=== PATIENT | male | born 1995 | race Caucasian/White ===

== ENCOUNTER 2016-11-21 16:45 | Day surgery (SDC) | payer BC ==
[~2016-11-21] VITALS: Ht 188 cm; Wt 81.5 kg
[~2016-11-21 16:45] MED LIST: LACTATED RINGER'S 1000 ML INJ 1,000 ML IV ONE; ONDA1TAB16 PO; ONDANSETRON HCL 4 MG/2 ML VIAL IV PUSH ONE; PROPOFOL 200 MG/20 ML AMP IV ONE; Z.0.NO CURRENT MEDS
[2016-11-21 16:53] VITALS: BP 186/86; PULSE 65; RESP 16; TEMP 98.5; O2SAT 100
--- NOTE | 2016-11-21 17:11 | PD ---
HPI Chief Complaint: Injury Time Seen by Provider: 17:02 Travel History International Travel<30 days: No Contact w/Intl Traveler<30days: No Traveled to known affect area: No History of Present Illness HPI 21-year-old male presents to the emergency department for evaluation of right wrist injury that occurred just prior to arrival. Patient states he was on his skateboard when he fell on his right wrist. He denies any febrile C. No neck pain or back pain. No chest pain or abdominal pain. No nausea, vomiting, diarrhea. Patient is obvious deformity to the right wrist. He does have open areas to his right volar wrist, which appear to be abrasions. Patient states his tetanus immunization is up-to-date. He has history of ADHD. He does take Adderall occasionally. No other complaints at this time. Patient states that he last ate approximately 2 hours ago, some eggs. He also drank Gatorade on his to the hospital. PFSH Past Medical History Hx Anticoagulant Therapy: No Cardiovascular Problems: No Chemotherapy: No Cerebrovascular Accident: No Diabetes: No Diminished Hearing: No Respiratory: No Immunizations Current: Yes ?: Not Past Surgical History Abdominal Surgery: Yes (HERNIA REPAIR ) Hysterectomy: No Social History Alcohol Use: No Tobacco Use: No Substance Use: Yes (MARIJUANA) Allergies-Medications (Allergen,Severity, Reaction): Coded Allergies: No Known Allergies (Verified , 02/03/12) Reported Meds & Prescriptions Reported Meds & Active Scripts Active Review of Systems Except as stated in HPI: all other systems reviewed are Neg Physical Exam Narrative GENERAL: Well-nourished, well-developed male patient, ambulatory. Afebrile SKIN: Focused skin assessment warm/dry. Patient has abrasions to the right volar wrist. HEAD: Normocephalic. Atraumatic. EYES: No scleral icterus. No injection or drainage. NECK: Supple, trachea midline. No JVD or lymphadenopathy. CARDIOVASCULAR: Regular rate and rhythm without murmurs, gallops, or rubs. Right radial pulse is easily palpable. RESPIRATORY: Breath sounds equal bilaterally. No accessory muscle use. Lungs sounds are clear to auscultation GASTROINTESTINAL: Abdomen soft, non-tender, nondistended. MUSCULOSKELETAL: No cyanosis, or edema. BACK: Nontender without obvious deformity. No CVA tenderness. Data Data Last Documented VS Vital Signs Date Time Temp Pulse Resp B/P (MAP) Pulse Ox O2 Delivery O2 Flow Rate FiO2 11/21/16 16:53 98.5 65 16 186/86 (119) 100 Room Air Orders Orders Forearm (2vws) (11/21/16 ) Iv Access Insert/Monitor (11/21/16 17:04) Morphine Inj (Morphine Inj) (11/21/16 17:15) Ondansetron Inj (Zofran Inj) (11/21/16 17:15) Propofol 200 Mg/20 Ml Inj (Diprivan 200 (11/21/16 17:30) Wrist, Limited (Ap&Lat) (11/21/16 ) Morphine Inj (Morphine Inj) (11/21/16 18:00) Complete Blood Count With Diff (11/21/16 18:14) Comprehensive Metabolic Panel (11/21/16 18:14) Prothrombin Time / Inr (Pt) (11/21/16 18:14) Act Partial Throm Time (Ptt) (11/21/16 18:14) Admit Order (Ed Use Only) (11/21/16 18:51) Labs Laboratory Tests Test 11/21/16 18:25 [facility] Medical Decision Making Medical Screen Exam Complete: Yes Emergency Medical Condition: Yes Medical Record Reviewed: Yes Interpretation(s) Last Impressions Wrist X-Ray 11/21/16 0000 Signed Impressions: Service Date/Time: Monday, November 21, 2016 18:03 - CONCLUSION: Significant improvement of alignment of distal radius and ulnar styloid fractures. Lobo Bennett MD Radius/Ulna X-Ray 11/21/16 0000 Signed Impressions: Service Date/Time: Monday, November 21, 2016 17:29 - CONCLUSION: 1. Acute comminuted dorsally dislocated fracture involving the distal radius with involvement of the articular surface. 2. Acute fracture/dislocation of the ulnar styloid process. Maximus Angela MD Differential Diagnosis Fracture versus open fracture versus dislocation versus contusion Narrative Course 21-year-old male presents to the emergency department for evaluation of right wrist injury. Patient has obvious deformity of the right wrist. IV access obtained. Patient is given morphine 4 g IV, Zofran 4 mg IV for pain. X-ray of the right wrist and right forearm are ordered and pending. X-ray of the right forearm shows acute comminuted dorsally dislocated fracture involving the distal radius with involvement of the articular surface, acute fracture/dislocation of the ulnar styloid process. My attending physician performed conscious sedation to reduce the fracture. Splint was applied. Repeat x-ray shows significant improvement of alignment distal radius and ulnar styloid fractures. Orthopedic surgeon pulmonary disease specialist, Dr. Mayo, is paged. I spoke to QUANG Mayorga for Dr. Mayo, who will take patient to surgery [facility]. Patient verbalizes agreement to this. Diagnosis Primary Impression: Right wrist fracture Qualified Codes: S62.101A - Fracture of unspecified carpal bone, right wrist, initial encounter for closed fracture Admitting Information Admitting Physician Requests: Observation Maria Esther Spivey Nov 21, 2016 17:11
[2016-11-21] MEDS ORDERED: ONDANSETRON HCL 4 MG/2 ML VIAL IV PUSH ONE (17:15)
[2016-11-21] MEDS ORDERED: MORPHINE SULFATE 4 MG/ML INJ IV PUSH ONE ×2 (17:15→18:00)
[2016-11-21] MEDS ORDERED: PROPOFOL 200 MG/20 ML AMP IV ONE (17:30)
--- NOTE | 2016-11-21 17:42 | RADRPT ---
EXAM DATE/TIME: 11/21/2016 17:29 [facility] COMPARISON: No previous studies available for comparison. INDICATIONS : Right wrist pain after falling off skateboard. MEDICAL HISTORY : None. SURGICAL HISTORY : None. ENCOUNTER: Initial ACUITY: 1 day PAIN SCORE: 10/10 LOCATION: Right distal forearm. FINDINGS: There is an acute comminuted dorsally dislocated fracture involving the distal radius with involvemen t of the articular surface. There is also acute fracture of the ulnar styloid process which is disloc ated dorsally. CONCLUSION: 1. Acute comminuted dorsally dislocated fracture involving the distal radius with involvement of the articular surface. 2. Acute fracture/dislocation of the ulnar styloid process. Maximus Angela MD on November 21, 2016 at 17:35 Board Certified Radiologist. This report was verified electronically.
--- NOTE | 2016-11-21 18:10 | RADRPT ---
EXAM DATE/TIME: 11/21/2016 18:03 [facility] COMPARISON: FOREARM RIGHT (2VWS), November 21, 2016, 17:29. INDICATIONS : Post reduction right wrist fracture. MEDICAL HISTORY : None. SURGICAL HISTORY : None. ENCOUNTER: Initial ACUITY: 1 day PAIN SCORE: 2/10 LOCATION: Right wrist FINDINGS: Two view examination of the right wrist demonstrates placement of a splint. Better alignment of dista l radius and ulnar fractures. CONCLUSION: Significant improvement of alignment of distal radius and ulnar styloid fractures. Lobo Bennett MD on November 21, 2016 at 18:07 Board Certified Radiologist. This report was verified electronically.
--- NOTE | 2016-11-21 18:55 | PD ---
Data Data Last Documented VS Vital Signs Date Time Temp Pulse Resp B/P (MAP) Pulse Ox O2 Delivery O2 Flow Rate FiO2 11/21/16 16:53 98.5 65 16 186/86 (119) 100 Room Air Orders Orders Forearm (2vws) (11/21/16 ) Iv Access Insert/Monitor (11/21/16 17:04) Morphine Inj (Morphine Inj) (11/21/16 17:15) Ondansetron Inj (Zofran Inj) (11/21/16 17:15) Propofol 200 Mg/20 Ml Inj (Diprivan 200 (11/21/16 17:30) Wrist, Limited (Ap&Lat) (11/21/16 ) Morphine Inj (Morphine Inj) (11/21/16 18:00) Complete Blood Count With Diff (11/21/16 18:14) Comprehensive Metabolic Panel (11/21/16 18:14) Prothrombin Time / Inr (Pt) (11/21/16 18:14) Act Partial Throm Time (Ptt) (11/21/16 18:14) Admit Order (Ed Use Only) (11/21/16 18:51) Labs Laboratory Tests Test 11/21/16 18:25 MDM Supervised Visit with CHELSI: Yes Narrative Course The history, exam, and medical decision-making in the associated midlevel provider note were completed with my assistance. I reviewed and agree with the findings presented. I attest that I had a [id number] encounter with the patient on the same day, and personally performed and documented my assessment and findings in the medical record. *My assessment and Findings: This is a 21-year-old male who presents to the emergency department having been skateboarding injuring his right wrist. He has a Colles' fracture of the right wrist with significant deformity on exam. He had some. He had some paresthesias in the fifth digit prior to reduction. Conscious sedation was performed and the wrist was reduced. Patient tolerated the procedure well and had sensation resolves and pain significantly improved. Patient will be taken to the operating room by Dr. Mayo this evening. Procedures Procedure Narrative After the risks and benefits were discussed the following procedure was performed: MODERATE SEDATION: The patient was placed on a monitor worker and pulse oximetry. An ambu bag and suction was immediately available at bedside. The patient was monitored by the nurse. Oxygen saturation, heart rate and blood pressure were monitored. Procedural sedation was acheived using 120 mg of propofol. The patient was observed until awake and alert. Procedural Sedation time in attendance was 30 minutes. Reduction of right wrist: Traction countertraction was performed on distal radius fracture obtaining significant alignment. Patient had a strong radial pulse and normal sensation following reduction. Cayla Jean MD Nov 21, 2016 18:55
[2016-11-21 18:57] LABS: AUTOMATED NEUTROPHIL # 9.6 TH/MM3 (1.8-7.7); BASOPHIL # 0.1 TH/MM3 (0-0.2); BASOPHIL % 0.6 % (0.0-2.0); EOSINOPHIL # 0.2 TH/MM3 (0-0.4); EOSINOPHIL % 1.2 % (0.0-4.0); HEMATOCRIT 42.8 % (39.0-51.0); LYMPHOCYTE # 5.5 TH/MM3 (1.0-4.8); MEAN CELL VOLUME 89.6 FL (80.0-100.0); MEAN CORPUSCULAR HEMOGLOBIN 29.8 PG (27.0-34.0); MEAN CORPUSCULAR HGB CONC 33.3 % (32.0-36.0); MONO % 5.1 % (0.0-8.0); NEUT % 59.1 % (16.0-70.0); PLATELET COUNT 357 TH/MM3 (150-450); RED BLOOD COUNT 4.77 MIL/MM3 (4.50-5.90); WHITE BLOOD COUNT 16.3 TH/MM3 (4.0-11.0)
[2016-11-21 19:09] LABS: HEMO FLAGS AUTO DIFF
[2016-11-21] MEDS ORDERED: HYDROmorphone HCL PF 1 MG/ML VIAL IV PUSH ONE (19:15)
[2016-11-21 19:18] LABS: APTT (PATIENT) 23.6 SEC (24.3-30.1); PROTHROMBIN TIME - PATIENT 11.1 SEC (9.8-11.6)
[2016-11-21 19:24] LABS: ALT (GPT) 47 U/L (9-52)
[2016-11-21 19:26] LABS: ALKALINE PHOSPHATASE 70 U/L (45-117); TOTAL BILIRUBIN ADULT 0.3 MG/DL (0.2-1.0)
[2016-11-21 19:28] LABS: ANION GAP 9 MEQ/L (5-15); AST (GOT) 30 U/L (15-39); BICARBONATE 26.8 MEQ/L (21.0-32.0); BLOOD UREA NITROGEN 16 MG/DL (7-18); CHLORIDE 103 MEQ/L (98-107); GLOMERULAR FILTRATION RATE 93 ML/MIN (>89); POTASSIUM 3.8 MEQ/L (3.5-5.1); SODIUM (NA) 139 MEQ/L (136-145)
[2016-11-21] MEDS ORDERED: GENTAMICIN SULFATE 80 MG/2 ML VIAL ONE (19:49)
[2016-11-21 19:55] VITALS: PULSE 64
[2016-11-21] MEDS ORDERED: INSULIN HUMAN REGULAR 1,000 UNITS/10 ML VIAL SQ PRN (20:15)
[2016-11-21] MEDS ORDERED: METOPROLOL TARTRATE 25 MG TAB PO PRN (20:15)
[2016-11-21] MEDS ORDERED: SODIUM CHLORID 0.9% 500 ML IV PRN (20:15)
[2016-11-21] MEDS ORDERED: CHLORHEXIDINE GLUCONATE 2 % 1 PACK (2 CLOTHS) TOPICAL PRN (20:15)
[2016-11-21] MEDS ORDERED: POVIDONE IODINE 5% (ANTISEPSIS KIT) 4 APPLICATIONS EACH NARE PRN (20:15)
[2016-11-21] MEDS ORDERED: LACTATED RINGER'S 1000 ML IV PRN (20:15)
[2016-11-21] MEDS ORDERED: MORPHINE SULFATE 4 MG/ML INJ IV SCH (20:45)
[2016-11-21 20:58] LABS: EOSINOPHILS 3 % (0-4); NEUTROPHIL # MANUAL DIFF 9.8 TH/MM3 (1.8-7.7); PLATELET ESTIMATE SMEAR HIGH (NORMAL); PLATELET MORPHOLOGY NORMAL (NORMAL); POLYS (SEG NEUTROPHILS) 60 % (16-70); SCAN/DIFF FINAL DIFF MANUAL; WBC DIFF SAMPLE 100
[2016-11-21] MEDS ORDERED: ceFAZolin 2 GM PREMIX 50 ML ONE (21:09)
[2016-11-21] MEDS ORDERED: HYDR-3366 PO (21:24)
--- NOTE | 2016-11-21 21:28 | PD.OP ---
cc: Nate Mayo MD Operative Report Date of Surgery: Nov 21, 2016 Preoperative Diagnosis: Displaced right distal radius fracture Postoperative Diagnosis: Procedure: Open reduction internal fixation right distal radius Anesthesia: Gen. Surgeon: Nate Mayo Crystal Slicer(s): Mukesh Mims PA-C The surgical procedure was assisted by my physician producer assistant. My P.A. presence was necessary throughout this case for the manipulation and positioning of the surgical extremity. My P.A. was assisting me throughout the duration of this procedure. The skill set of a physician producer assistant was medically necessary to complete this procedure. During the surgical case the surgical instrument repair specialist was working at the back table and the physician producer assistant was directly assisting me. Operation and Findings: Plan of activity : Splint 2 weeks, then removable wrist brace, nonweightbearing right wrist Patient was seen and evaluated preoperatively and found to have a displaced right distal radius fracture. Informed consent was obtained after detailed discussion of risk and benefits including bleeding, infection, injury to arteries, nerves, and blood vessels, weakness and numbness of hand, and tendon rupture. Informed consent was obtained. Patient received IV antibiotics prior to incision. Timeout procedure was performed. Operative extremity was prepped with alcohol followed by Hibiclens and draped usual sterile fashion. A standard volar approach to the distal radius was utilized. A 3 inch incision was made over the FCR tendon. Tendon sheath was opened. Pronator quadratus was elevated up. The fracture site was now visualized. Traction was applied. The articular surface was reduced. Fracture fragments were manipulated to achieve excellent reduction. K wires were used to hold provisional fixation. Fluoroscopy confirmed appropriate alignment of fracture. An ITS variable angle distal radius plate was selected. Plate was provisionally fixed to bone with K wires. 2.7 and 2.4 cortical screws were used to compress plate to bone. Fluoroscopy confirmed appropriate alignment of fracture with well-placed hardware. Multiple 2.4 locking screws were now placed distally. Screws were predrilled and measured for appropriate length. 2 additional screws were placed into the shaft. K wires were removed. Final fluoroscopy revealed excellent of fracture with well-placed hardware. The wound was thoroughly irrigated with sterile saline. Subcutaneous tissue was closed with 3-0 Vicryl and skin was closed with 3-0 nylon. Sterile dressings were applied with Xeroform, 4 x 4, soft roll, and a well padded volar splint. Patient was awakened and transferred to recovery room in stable condition Nate Mayo MD Nov 21, 2016 21:28
[2016-11-21] MEDS ORDERED: ACETAMINOPHEN/HYDROcodone 325 MG/10 MG TAB PO PRN (21:30)
[2016-11-21] MEDS ORDERED: MORPHINE SULFATE 4 MG/ML INJ IV PUSH PRN (21:30)
[2016-11-21] MEDS ORDERED: DO NOT ADM ANY ANTICOAGULANT DRUGS PRN (22:45)
[2016-11-21] MEDS ORDERED: *morphine SULFATE 8 MG/ML PERIprocedure ONLY ONE ×2 (23:10→23:32)
--- NOTE | 2016-11-21 23:19 | RADRPT ---
EXAM DATE/TIME: 11/21/2016 22:25 [facility] COMPARISON: No previous studies available for comparison. INDICATIONS : Right wrist fracture ORIF. OR. MEDICAL HISTORY : None. SURGICAL HISTORY : None. ENCOUNTER: Initial ACUITY: 1 day PAIN SCORE: Non-responsive. LOCATION: Right wrist FINDINGS: Two view examination of the right wrist demonstrates plate and screw fixation distal radius. Overlyin g soft tissue swelling. No other fractures. CONCLUSION: 1. Fixation distal radius fracture. Ricardo Reddy MD on November 21, 2016 at 23:17 Board Certified Radiologist. This report was verified electronically.
[2016-11-22] VITALS: TEMP 97.1
[2016-11-22] MEDS ORDERED: oxyCODONE/ACETAMINOPHEN 5 MG/325 MG TAB ONE (00:01)
[2016-11-22 00:15] VITALS: BP 163/96; PULSE 57; RESP 12; O2SAT 99
[2016-11-22] MEDS ORDERED: oxyCODONE/ACETAMINOPHEN 5 MG/325 MG TAB PO PRN ×2 (00:15)
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
--- NOTE | 2016-12-07 17:39 | PD.ORT.PN ---
Subjective Subjective Remarks patient stable and doing well status post surgery for right distal radius Objective Procedures ORIF right distal radius Objective Remarks right upper extremity: Splint intact with intact sensation in all fingers. Good capillary refills Assessment & Plan Assessment and Plan right distal radius fracture status post open reduction internal fixation. POD # 0 Right upper extremity with splint that is clean dry and intact. He has intact sensation with good capillary refills. Pain is controlled. He'll be discharged home. He'll maintain splint be nonweightbearing on the right upper extremity. He will continue use a sling when ambulating. Follow-up with Dr. Maria Esther DEL RIO in 2 weeks. Follow-up x-rays and removal sutures will be performed at that time Julio Perez Jr. Dec 07, 2016 17:39
== END 2016-11-22 00:23 | disposition home or self-care (01) ==
LOC: NEPC 16:45 → HSDC 19:01 → NEDA 19:27 → HSDI 20:30 → HSDC 11-22 00:23
PROVIDERS: ATTEND Orthopaedic Surgery Orthopaedic Trauma
DX: S52.511A Displaced fracture of right radial styloid process, initial encounter for closed fracture (principal); V00.131A Fall from skateboard, initial encounter; Y93.51 Activity, roller skating (inline) and skateboarding; Y99.8 Other external cause status; F12.10 Cannabis abuse, uncomplicated
CPT/HCPCS: 01830; 25605; 25607; 73090; 73100; 76000; 80053; 85007; 85027; 85610; 85730; 96374; 96375; 96376; 99153; 99156; 99285; C1713; J0690; J1170; J1580; J2270; J2405; J3010; J7120